=== PATIENT | female | born 1935 | race Caucasian/White ===

== ENCOUNTER → 2021-04-29 | Outpatient (REF) ==
[2021-04-29 12:54] LABS: ALBUMIN 4.2 g/dL (3.4-4.8); POTASSIUM 4.1 mmol/L (3.5-5.1)
[2021-04-29 12:55] LABS: CALCIUM 10.6 mg/dL (8.3-10.5)
[2021-04-29 12:57] LABS: TOTAL PROTEIN 8.2 g/dL (6.2-8.1)
== END ==
LOC: LAB 11:49
DX: Z01.89 Encounter for other specified special examinations (principal)